=== PATIENT | female | born 1945 | race African-American/Black ===

== ENCOUNTER 2017-02-14 20:06 | Emergency (ER) | payer MEDICARE, OTHER ==
[~2017-02-14] VITALS: Ht 160 cm; Wt 71.7 kg
[2017-02-14 20:46] VITALS: BP 176/97
[2017-02-14] MEDS ORDERED: Tylenol #3 tab (300mg/30mg) PO ONE (21:00)
[2017-02-14] MEDS ORDERED: ACETAMINOPHEN-1 EAC1 ORAL (22:30)
[2017-02-14 22:46] VITALS: BP 179/92
--- NOTE | 2017-02-15 10:22 | Diagnostic Imaging Report ---
Indications: Fall from ladder, injury, low back pain Technique: Continuous helical CT imaging of the lumbar spine was performed with automatic exposure control on a Siemens sensation [address] scanner. Axial, coronal, and sagittal images were reconstructed at 3 mm slice thicknesses. CTDI volume(s): 17 mGy Total DLP: 364 mGy-cm Findings: Comparison: None Vertebral and intact. No fracture, facet dislocation or subluxation, paraspinous soft tissue abnormality or other acute change identified. Osteophytes are present at the margins of each disc space. L3-4 disc space mildly narrowed with vacuum phenomenon. Mild facet hypertrophy L3-4 through L5-S1. Suggestion of mild spinal stenosis at L3-4 and L4-5. IMPRESSION: No evidence of acute injury to the lumbar spine Degenerative spondylosis with suggestion of multilevel mild spinal stenosis
--- NOTE | 2017-02-15 10:25 | Diagnostic Imaging Report ---
Indications: Fall from ladder, injury, back pain Technique: Continuous helical CT imaging of the thoracic spine was performed with automatic exposure control on a Siemens sensation [address] scanner. Axial, coronal, and sagittal images were reconstructed at 3 mm slice thicknesses. CTDI volume(s): 25 mGy Total DLP: 953 mGy-cm Findings: Comparison: None Vertebral and intact. No fracture, facet dislocation or subluxation, paraspinous soft tissue abnormality or other acute change identified. Osteophytes are present at the margins of multiple disc spaces, some mildly narrowed. No obvious spinal stenosis results. Irregular linear densities are present in the dependent portions both lung bases. IMPRESSION: No evidence of acute injury to the thoracic spine Degenerative spondylosis Pulmonary bibasal subsegmental atelectasis
--- NOTE | 2017-02-15 10:33 | Diagnostic Imaging Report ---
Indications: Fall from ladder, head trauma, pain Technique: Continuous helical CT imaging of the brain was performed with automatic exposure control on a Siemens sensation [address] scanner. Axial and coronal images were reconstructed at 5 mm slice thickness and interval. CTDI volume(s): 70 mGy Total DLP: 1319 mGy-cm Findings: Comparison: None Confluent low attenuation is present in the bilateral periventricular white matter. Ventricles, cisterns, and sulci are only, diffusely prominent. No evidence of mass or hemorrhage, mass effect, midline shift, hydrocephalus, or increased intracranial pressure. Bone window images are unremarkable. Mucoperiosteal thickening is present throughout the visualized paranasal sinuses with partial opacification, multiple air-fluid levels. Bilateral mastoid air cells are clear.. IMPRESSION: Pansinusitis, acute. Correlate with any evidence of facial injury.. No other evidence of acute injury or other acute intracranial pathology. Chronic microvascular ischemic changes bilateral periventricular white matter Mild age-appropriate atrophy The CT scanner at [facility] is accredited by the [employer] and the scans are performed using protocols designed to limit radiation exposure to as low as reasonably achievable to attain images of sufficient resolution adequate for diagnostic evaluation.
--- NOTE | 2017-02-15 11:02 | Diagnostic Imaging Report ---
Indications: Fall from ladder, neck injury, pain Technique: Continuous helical CT imaging of the cervical spine performed with automatic exposure was on a Siemens sensation [address] scanner. Axial, coronal and sagittal images reconstructed at 3 mm slice thicknesses. CTDI volume(s): 14 mGy Total DLP: 263 mGy-cm Findings: Comparison: None. Lordotic curvature is reversed.Vertebral alignment is intact. No fracture, facet subluxation or dislocation, prevertebral soft tissue swelling, or other acute changes are demonstrated. Osteophytes are present at the margins of each disc space with mild narrowing. Suggestion of mild spinal stenosis at C3-4 through C6-7. IMPRESSION: Reversal of cervical lordosis. This may be secondary to degenerative changes, positioning and/or muscular spasm. No other evidence of acute cervical injury Dear spondylosis. Suggestion of mild multilevel spinal stenosis. The CT scanner at [facility] is accredited by the [employer] and the scans are performed using protocols designed to limit radiation exposure to as low as reasonably achievable to attain images of sufficient resolution adequate for diagnostic evaluation.
--- NOTE | 2017-02-15 15:44 | Emergency Room Report ---
History of Present Illness General Chief Complaint: Multiple Trauma/Fall Source: Patient Present Illness HPI 71-year-old female presents ED for evaluation. Patient states this morning she fell off of a ladder and fell backwards and hit her head and back. Denies LOC. States she fell from a height of approximately 5 feet. Landing on dirt. Patient is here complaining of headache, neck pain and back pain. Pain is an 8/ 10, sharp, nonradiating. Is able to walk and bear weight. Denies any leg weakness. Denies any arm weakness. No other aggravating or relieving factors. Denies any other associated symptoms Allergies: Coded Allergies: No Known Allergies (Unverified , 02/14/17) Patient History Past Medical History: HTN Past Surgical History: none Pertinent Family History: none Social History: Denies: alcohol use, drug use, smoking Now: No Immunizations: UTD Reviewed Nursing Documentation: PMH: Agreed, PSxH: Agreed Nursing Documentation-PMH Hx Hypertension: Yes Review of Systems All Other Systems: negative except mentioned in HPI Physical Exam Vital Signs Date Time Temp Pulse Resp B/P Pulse Ox O2 Delivery O2 Flow Rate FiO2 02/14/17 20:31 98.4 94 16 196/94 98 Room Air Sp02 EP Interpretation: reviewed, normal General Appearance: no apparent distress, alert, GCS 15, non-toxic Head: normocephalic Eyes: bilateral eye PERRL, bilateral eye normal inspection ENT: hearing grossly normal, normal pharynx, no angioedema, normal voice Neck: full range of motion, supple/symm/no masses, tender midline Respiratory: chest non-tender, lungs clear, normal breath sounds, speaking full sentences Cardiovascular #1: regular rate, rhythm, no edema Gastrointestinal: normal inspection Rectal: deferred Genitourinary: vertebral tenderness - T. and L-spine Musculoskeletal: back normal Neurologic: alert, oriented x3, responsive, motor strength/tone normal, sensory intact, speech normal Psychiatric: judgement/insight normal, memory normal, mood/affect normal, no suicidal/homicidal ideation Skin: normal inspection Lymphatic: normal inspection Medical Decision Making Diagnostic Impression: Primary Impression: Multiple injuries due to trauma ER Course Hospital Course 71-year-old female presents ED complaining of headache, neck and back Status post fall from ladder Differential diagnoses include: Fracture, dislocation, sprain, contusion Clinical course Patient placed on stretcher. After initial history and physical, I ordered pain medications and CT of the head, C-spine, T-spine and L-spine CTs of head and spine are unremarkable for acute fracture. On reassessment pain is improved Diagnosis - multiple injuries due to trauma Stable and discharged to home with prescription for Tylenol #3. apply ice, keep elevated. weight bear as tolerated. Followup with PMD. Return to ED if symptoms recur or worsen CT/MRI/US Diagnostic Results CT/MRI/US Diagnostic Results : Imaging Test Ordered: CT head, CT C-spine, CT T-spine, CT L-spine Impression CT head- unremarkable CT [id number], no acute fracture CT T-spine and CT L-spine, no acute process Last Vital Signs Date Time Temp Pulse Resp B/P Pulse Ox O2 Delivery O2 Flow Rate FiO2 02/14/17 22:46 67 16 179/92 95 Room Air 02/14/17 22:46 97.9 Status: improved Disposition: HOME, SELF-CARE Condition: Stable Scripts Acetaminophen With Codeine (T#3) (TYLENOL #3 TAB*) Y Tab 1 TAB ORAL Q8H Y for For Pain, #20 TAB Prov: CESAR RODRIGUEZ M.D. 02/14/17 Referrals: NON PHYSICIAN (PCP) Patient Instructions: Back Pain, Adult, [id number] CESAR RODRIGUEZ M.D. Feb 15, 2017 15:44
== END 2017-02-14 22:58 | disposition home or self-care (01) ==
LOC: EMR 22:51
DX: R21 Rash and other nonspecific skin eruption (principal); M54.2 Cervicalgia; M54.9 Dorsalgia, unspecified; I10 Essential (primary) hypertension; M47.892 Other spondylosis, cervical region; J32.4 Chronic pansinusitis; M47.894 Other spondylosis, thoracic region; J98.11 Atelectasis; M47.896 Other spondylosis, lumbar region
CPT/HCPCS: 70450; 72125; 72128; 72131; 99284